=== PATIENT | male | born 1955 | race Caucasian/White ===

== ENCOUNTER 2021-12-22 16:12 | Emergency (ER) | payer BC, MEDICARE ==
[~2021-12-22] VITALS: Ht 180.3 cm; Wt 95.4 kg
--- NOTE | 2021-12-22 16:25 | PHYS DOC ---
Past Medical History Past Surgical History: No Surgical History (ALINE HENDERSON DO) General Adult EDM: Chief Complaint: SHORTNESS OF BREATH HPI: HPI: Patient is a 66 year old male who presents with greater than 2 months of generalized weakness, fatigue, decreased appetite. No weight loss reported. He reports progressively worsening acid reflux symptoms. He has known hiatal herni a. He has intermittently taken Tums, and for the past 4 days he has taken his 's omeprazole. For the past 2 weeks, he feels his generalized weakness is becoming worse. His made him come to the ER today because she reports that she saw him holding onto the card while walking. He has not sustained any falls or acute injury. He denies chest pain, palpitations, dyspnea. He denies cough. He denies headache, dizziness, vertigo. He denies numbness or tingling or focal motor weakness. He denies abdominal pain, back pain, urinary symptoms. He denies fevers or chills. He denies any known sick contacts. Denies recent hospitalization, travel history, denies recent surgery. He has not seen a primary care doctor in quite some time, he has not had labs in over 2 years. He is reportedly scheduled to see a new primary care doctor on Saturday. He admits that he did not want to come in to be seen at all today. The triage nurse noted hypotension and hypoxia, he was rushed back to the ER main ED immediately, he manifests a normal blood pressure and normal room air oxygen saturation. These vital signs were checked within mere minutes of each other. (ALINE HENDERSON DO) Review of Systems: Review of Systems: Constitutional: Denies fever or chills. Generalized malaise and fatigue. Eyes: Denies change in visual acuity. [] HENT: Denies nasal congestion or sore throat. [] Respiratory: Denies cough or shortness of breath. [] Cardiovascular: Denies chest pain or edema. [] GI: Denies abdominal pain, nausea, vomiting, or diarrhea./Dyspepsia symptoms reported : Denies Esteban symptoms. Musculoskeletal: Denies back pain or joint pain. [] Integument: Denies rash. [] Neurologic: Denies headache, focal weakness or sensory changes. Denies dizziness, vertigo, head injury or syncope. Psychiatric: Denies depression or anxiety. [] (ALINE HENDERSON DO) Heart Score: C/O Chest Pain: No Risk Factors: Risk Factors: DM, Current or recent (<one month) smoker, HTN, HLP, family history of CAD, obesity. Risk Scores: Score 0 - 3: 2.5% MACE over next 6 weeks - Discharge Home Score 4 - 6: 20.3% MACE over next 6 weeks - Admit for Clinical Observation Score 7 - 10: 72.7% MACE over next 6 weeks - Early Invasive Strategies (ALINE HENDERSON DO) C/O Chest Pain: N/A (LENA HERR I DO) Physical Exam: PE: Constitutional: Well developed, well nourished, no acute distress, non-toxic appearance. [] HENT: Normocephalic, atraumatic, oropharynx is patent and clear, mucous membranes are moist. TMs are clear bilaterally. Nares are patent clear without rhinorrhea epistaxis. Eyes: PERRL, EOMI, conjunctiva normal, no discharge. No nystagmus. No scleral icterus. Neck: Normal range of motion, no tenderness, supple, no stridor. No JVD, trachea midline, no meningismus. Cardiovascular:Heart rate regular rhythm, +2 radial and +2 posterior tibial pulses bilaterally Lungs & Thorax: Bilateral breath sounds clear to auscultation [] Abdomen: Bowel sounds normal, soft, no tenderness, no masses, no pulsatile masses. [] Skin: Warm, dry, no erythema, no rash. [] Back: No tenderness, no CVA tenderness. [] Extremities: No tenderness, no cyanosis, no clubbing, ROM intact, no edema. Calf tenderness. Neurologic: Awake, alert, oriented x3, cranial nerves II through XII grossly intact. 5-5 motor strength all 4 extremities. Sensation is grossly intact. No limb ataxia. No pronator drift or dysmetria. Gait is steady. Speech is clear and fluent, nonfocal exam Psychologic: Affect normal, judgement normal, mood normal. [] (ALINE HENDERSON DO) Current Patient Data: Vital Signs: Vital Signs Date Time Temp Pulse Resp B/P (MAP) Pulse Ox O2 Delivery O2 Flow Rate FiO2 12/22/21 16:19 98.0 64 20 74/53 (60) 86 Room Air 98.0 (ALINE HENDERSON DO) EKG: EKG: EKG is interpreted at 1625 Rhythm is sinus Rate is 64 bpm Marked artifact No STEMI (ALINE HENDERSON DO) Radiology/Procedures: Radiology/Procedures: IMAGING REPORT Signed PATIENT: FORREST HAYWARD ACCOUNT: [id number] : 1955 LOCATION: ER AGE: 66 SEX: M EXAM STATUS: PRE ER ORD. PHYSICIAN: ALINE HENDERSON DO REASON: generalized weakness PROCEDURE: CT HEAD WO CONTRAST EXAM: CT head without contrast INDICATION: Generalized weakness COMPARISON: None TECHNIQUE: Axial CT imaging through the head without intravenous contrast. Sagittal and coronal reformats were obtained. One or more of the following individualized dose reduction techniques were utilized for this examination: 1. Automated exposure control 2. Adjustment of the mA and/or kV according to patient size 3. Use of iterative reconstruction technique. FINDINGS: The ventricles and sulci are normal. Leigh-white matter differentiation is maintained. There is no intracranial hemorrhage, acute infarct, or mass lesion. Basal cisterns are clear. The skull and scalp are intact. Mild scattered mucosal thickening in the frontal sinuses with some bubbly secretions. There is a mucous retention cyst in the left sphenoid sinus. Mastoid air cells are clear. Globes and orbits are intact. IMPRESSION: 1. No acute intracranial abnormality. 2. Mild paranasal sinus disease. Electronically signed by: Naa Bishop MD (12/22/2021 5:51 PM) [facility] DICTATED and SIGNED BY: NAA BISHOP MD DATE: 12/22/21 [id number] (ALINE HENDERSON DO) Course & Med Decision Making: Course & Med Decision Making Pertinent Labs and Imaging studies reviewed. (See chart for details) The patient is given IV fluids. I have ordered a UA, and the patient has yet to give a urine. He reports he has a "shy bladder." I have informed him and the nursing staff that he will need to be catheterized for UA if he is not able to produce 1. He does have some evidence of renal insufficiency, he is unsure if this is new, as he has had no previous labs here, and he has not had labs checked in over 2 years. Repeat troponin is pending. He manifests no evidence of distress, laboratory exams are otherwise unremarkable. Blood pressure and vital signs are otherwise stable. He denies chest pain or dyspnea. He denies any dizziness or focal weakness. Neuro exam is nonfocal. I discussed all the findings, differential diagnosis and plan of care with him. I am transferring care to Dr. Herr to follow-up on UA and repeat troponin. The patient is comfortable with discharge home with these results return as negative/unremarkable. He will follow up with his new primary care doctor on Saturday (ALINE HENDERSON DO) Course & Med Decision Making Assumed care at shift change. Dispostion pending UA and repeat Troponin. UA with signs of infection and repeat troponin unchaged. Patient covid +. He is not hypoxic. Recommend OTC zinc, Vit C, and baby ASA 81mg. (LENA HERR DO) Dragon Disclaimer: Dragon Disclaimer: This electronic medical record was generated, in whole or in part, using a voice recognition dictation system. (ALINE HENDERSON DO) Departure Departure Impression: Primary Impression: Generalized weakness Additional Impressions: Renal insufficiency COVID-19 Disposition: 01 HOME / SELF CARE / HOMELESS Condition: STABLE Referrals: SAKINA CRONIN MD (PCP) IVON MESA MD Patient Instructions: Chronic Renal Insufficiency, Weakness Additional Instructions: You have been tested for or diagnosed with COVID-19. It is an infection caused b y a new type of coronavirus. COVID-19 will cause cold-like or mild flu symptoms in most. It can cause more severe symptoms like problems breathing in some. There is no treatment for COVID-19. The body will clear the infection over time. Self-care will help to ease discomfort. Steps to Take: Self-Care Rest as needed. Healthy habits may help you feel better. Steps include: Choose healthy foods including fruits and vegetables. Drink water throughout the day. Get plenty of sleep each night. If you smoke, try to quit. It may ease breathing. Avoid alcohol. Keep Others Healthy The virus can spread to others. Droplets are released every time you sneeze or cough. The droplets can get into the mouth, nose, or eyes of people near you and lead to infection. To lower the chances of spreading COVID-19 to others: Stay at home until your doctor has said it is safe to leave. If you tested po sitive this will mean staying isolated until both of the following are true: At least 7 days have passed since the start of illness. You are free of fever for at least 72 hours without the use of medicine. During this time: - Avoid public areas, events, or transportation. Do not return to work or school until your doctor has said it is safe to do so. - Call ahead if you need to go to a medical center. Let them know you may have COVID-19. It will help them guide you where to go. They may also ask you to wear a facemask when you come to the office. - If you call for emergency medical services, let them know you may have COVID- 19. While at home: - Try to avoid close contact with others. Stay about 6 feet away. - If possible, spend most of your time in a separate room from others. - Use a face mask if you will be in close contact with others such as sharing a room or vehicle. - Have someone wipe down common surfaces in the home. Use household crtts every day on areas like doorknobs, counters, or sinks. - Cough or sneeze into a tissue. Throw the tissue away right after use. If a tissue is not available, cough or sneeze into your elbow. - Wash your hands often. Wash them after sneezing or coughing. Use soap and water and wash for at least 20 seconds. Alcohol based hand housekeeping cleaner can be used if soap and water is not available. - Do not prepare food for others. Avoid sharing personal items like forks, spoons, or toothbrushes. - Avoid close contact with pets while you are sick. There is no evidence of the virus passing to pets. This is a safety step until more is known about this virus. Isolation can be frustrating. Social interaction can help. Keep in touch with friends and family through phone and tech options. You can still interact with others in your home, just keep a safe distance of about 6 feet. Follow-up: Your doctors office will check in with you to see if there are any changes in your health. You may be asked to keep track of symptoms to share with them. They will also let you know when you are clear to be in public again. Problems to Look Out For: Contact your doctor if your recovery is not going as you expect. Get emergency care if you have problems such as: - Trouble breathing - Nonstop chest pain or pressure - Changes in awareness, confusion, or problems waking - Lips or face have bluish color - Worsening of symptoms If you think you have an emergency, call for emergency medical services right away. As taken from [facility] Please make sure you stay hydrated, drink plenty of fluids. Return to the ER for chest pain, shortness of breath, abdominal pain, uncontrolled vomiting, if you develop a temperature of 100.4 or higher, if you have any acute injury or trauma or for any other concerns. Please keep your scheduled appointment this Saturday with your new primary care doctor. You may ultimately require outpatient referral to GI services for your acid reflux symptoms. Please make sure you discuss having repeat outpatient laboratory exams done by your primary care doctor to follow your kidney function. ALINE HENDERSON DO Dec 22, 2021 16:25 LENA HERR I DO Dec 22, 2021 20:33
--- NOTE | 2021-12-22 17:02 | EKG ---
[facility] [address] [place] [address] Test Date: 2021-12-22 Test Time: 16:23:19 Pat Name: FORREST HAYWARD Department: Room: Gender: M Acupuncturist: : 1955 Requested By: ALINE HENDERSON Order Number: [id number] Reading MD: Olman Blount Measurements Intervals [place] Rate: 64 P: IN: QRS: -23 QRSD: 100 T: 136 QT: 434 QTc: 452 Interpretive Statements SINUS RHYTHM LEFTWARD AXIS LVH WITH REPOLARIZATION ABNORMALITY ANTERIOR ST ELEVATION Electronically Signed On 12-25-2021 12:14:12 REGISTERED CLINICAL DIETITIAN by Olman Blount
[2021-12-22 17:03] LABS: BASO % 0 % (0-3); EOS % 1 % (0-3); HEMATOCRIT 41.1 % (39.0-53.0); LYMPH # 0.8 x10^3/uL (1.0-4.8); LYMPH % 16 % (24-48); MEAN CORPUSCULAR HEMOGLOBIN 29 pg (25-35); MEAN CORPUSCULAR HGB CONC 34 g/dL (31-37); MEAN CORPUSCULAR VOLUME 86 fL (79-100); MONO # 0.7 x10^3/uL (0.0-1.1); MONO % 13 % (0-9); NEUT # 3.5 x10^3/uL (1.8-7.7); NEUT % 70 % (31-73); PLATELET COUNT 163 x10^3/uL (140-400); RED BLOOD COUNT 4.78 x10^6/uL (4.30-5.70); RED CELL DISTRIBUTION WIDTH 14.5 % (11.5-14.5); WHITE BLOOD COUNT 5.1 x10^3/uL (4.0-11.0)
[2021-12-22 17:13] LABS: CALCIUM 8.9 mg/dL (8.5-10.1); CREATININE 1.9 mg/dL (0.7-1.3); GFR 35.5; POTASSIUM 4.8 mmol/L (3.5-5.1)
[2021-12-22 17:20] LABS: ALBUMIN 3.5 g/dL (3.4-5.0); ALBUMIN/GLOBULIN RATIO 0.9 (1.0-1.7); MAGNESIUM 2.5 mg/dL (1.8-2.4); PHOSPHORUS 3.7 mg/dL (2.6-4.7); TOTAL BILIRUBIN 1.3 mg/dL (0.2-1.0); TOTAL PROTEIN 7.5 g/dL (6.4-8.2)
[2021-12-22] MEDS ORDERED: IV NORMAL SALINE 1000ML BAG 1,000 ML IV ONE (17:30)
--- NOTE | 2021-12-22 17:53 | RAD ---
EXAM: CT head without contrast INDICATION: Generalized weakness COMPARISON: None TECHNIQUE: Axial CT imaging through the head without intravenous contrast. Sagittal and coronal refor mats were obtained. One or more of the following individualized dose reduction techniques were utilized for this examinat ion: 1. Automated exposure control 2. Adjustment of the mA and/or kV according to patient size 3. Use of iterative reconstruction technique. FINDINGS: The ventricles and sulci are normal. Leigh-white matter differentiation is maintained. There is no in tracranial hemorrhage, acute infarct, or mass lesion. Basal cisterns are clear. The skull and scalp a re intact. Mild scattered mucosal thickening in the frontal sinuses with some bubbly secretions. Ther e is a mucous retention cyst in the left sphenoid sinus. Mastoid air cells are clear. Globes and orbi ts are intact. IMPRESSION: 1. No acute intracranial abnormality. 2. Mild paranasal sinus disease. Electronically signed by: Naa Bishop MD (12/22/2021 5:51 PM) [facility]
[2021-12-22 19:51] LABS: BILIRUBIN,URINE NEGATIVE (NEG); CLARITY,URINE CLEAR; COLOR,URINE YELLOW; NITRITE,URINE NEGATIVE (NEG); PH,URINE 5.5 (<5.0-8.0); PROTEIN,URINE NEGATIVE (NEG-TRACE); UROBILINOGEN,URINE 0.2 mg/dL (0.2 mg/dL)
[2021-12-22 20:11] LABS: HYALINE CASTS, URINE MANY /HPF
[2021-12-22 20:12] LABS: BACTERIA,URINE 0 /HPF (0-FEW); RBC,URINE 0 /HPF (0-2)
[2021-12-22 21:06] VITALS: BP 136/84
== END 2021-12-22 21:16 | disposition home or self-care (01) ==
LOC: ER 16:12
DX: U07.1 COVID-19 (principal); N28.9 Disorder of kidney and ureter, unspecified; R53.1 Weakness
CPT/HCPCS: 36415; 70450; 80053; 81001; 82550; 83735; 84100; 84484; 85025; 87426; 93005; 96360; 99285; J7030